=== PATIENT | male | born 1945 | race Native Hawaiian/Other Pacific Islander ===

== ENCOUNTER 2025-05-23 18:52 | Emergency (ER) | payer OTHER ==
[2025-05-23 18:58] VITALS: BP 157/68; PULSE 106; RESP 16; TEMP 98; BMI 27.1
[2025-05-23] MEDS: METHOCARBAMOL 750 MG TABLET PO ONE (19:52)
[2025-05-23] MEDS ORDERED: LIDOCAINE 5% TOPICAL PATCH ONE (20:05)
[2025-05-23] MEDS ORDERED: ACETAMINOPHEN 500 MG TABLET (FP) ONE (20:05)
[2025-05-23] MEDS ORDERED: METHOCARBAMOL 500 MG TABLET ONE (20:05)
[2025-05-23] MEDS: ACETAMINOPHEN 500 MG TABLET (FP) PO ONE (20:14)
[2025-05-23] MEDS: LIDOCAINE 5% TOPICAL PATCH TP ONE (20:14)
[2025-05-23] MEDS: METHOCARBAMOL 500 MG TABLET PO ONE (20:15)
[2025-05-23] MEDS: LIDOCAINE PATCH REMOVAL MC SCH (22:06)
[2025-05-23] MEDS ORDERED: KETOROLAC TROMETHAMINE 30 MG/1 ML VIAL ONE (22:19)
[2025-05-23] MEDS: KETOROLAC TROMETHAMINE 30 MG/1 ML VIAL IM ONE (22:22)
== END 2025-05-23 22:26 | disposition home or self-care (01) ==
LOC: JER 18:52
PROC: 3E0233Z Introduction of Anti-inflammatory into Muscle, Percutaneous Approach (ICD-10-PCS; principal; 2025-05-23)
DX: M54.41 Lumbago with sciatica, right side (principal); G89.29 Other chronic pain
CPT/HCPCS: 73521-TC-FY; 93005; 93010; 99284-25